=== PATIENT | female | born 1990 | race Caucasian/White ===

== ENCOUNTER 2018-02-23 23:04 | Emergency (ER) | payer SELFPAY ==
[~2018-02-23] VITALS: Ht 165.1 cm; Wt 61.2 kg
[2018-02-23 23:09] VITALS: BP 106/69
[2018-02-23 23:43] LABS: MICROSCOPIC AUTO
[2018-02-23 23:44] LABS: CULTURE INDICATED? YES
== END 2018-02-24 00:48 | disposition home or self-care (01) ==
LOC: ED 23:34
DX: O26.891 Other specified pregnancy related conditions, first trimester (principal); O99.331 Smoking (tobacco) complicating pregnancy, first trimester; Z3A.00 Weeks of gestation of pregnancy not specified
CPT/HCPCS: 36415; 81001; 84702; 87086; 99284

== ENCOUNTER 2018-03-21 12:56 | Emergency (ER) | payer SELFPAY ==
[~2018-03-21] VITALS: Ht 165.1 cm; Wt 61.2 kg
[2018-03-21 13:28] LABS: MICROSCOPIC AUTO
[2018-03-21 13:29] LABS: CULTURE INDICATED? YES
[2018-03-21 13:33] LABS: BASOPHILS # (AUTO) 0.07 x10^3/uL (0-0.1); BASOPHILS % (AUTO) 1 % (0-1); EOSINOPHILS # (AUTO) 0.13 x10^3/uL (0-0.4); EOSINOPHILS % (AUTO) 2 % (1-7); LYMPHOCYTES # (AUTO) 1.63 x10^3/uL (1-3.4); LYMPHOCYTES % (AUTO) 20 % (22-44); MD NO; MEAN CORPUSCULAR HEMOGLOBIN 30.3 pg (27.0-34.8); MEAN CORPUSCULAR HGB CONC 33.5 g/dL (32.4-35.8); MEAN CORPUSCULAR VOLUME 90.6 fL (80-100); MEAN PLATELET VOLUME 10.7 fL (7.4-10.4); MONOCYTES # (AUTO) 0.45 x10^3/uL (0.2-0.8); MONOCYTES % (AUTO) 5 % (2-9); NEUTROPHILS % (AUTO) 72 % (42-75); PLATELET COUNT 165 x10^3/uL (130-400); RED BLOOD COUNT 4.38 x10^6/uL (3.82-5.3); RED CELL DISTRIBUTION WIDTH 13.4 % (9.6-15.2)
[2018-03-21 13:39] LABS: ANION GAP 8 mmol/L (5-15); CALCIUM 8.9 mg/dL (8.5-10.1); CHLORIDE 109 mmol/L (98-107)
[2018-03-21 13:41] LABS: CREATININE 0.82 mg/dL (0.55-1.02)
[2018-03-21] MEDS ORDERED: PRENATAL VITAMIN (15:47)
[2018-03-21 16:35] VITALS: BP 104/56
== END 2018-03-21 16:36 | disposition home or self-care (01) ==
LOC: ED 15:04
DX: O20.0 Threatened abortion (principal); F17.200 Nicotine dependence, unspecified, uncomplicated
CPT/HCPCS: 36415; 76801; 80048; 81001; 84702; 85025; 86901; 87086; 99285